=== PATIENT | male | born 1995 | race Caucasian/White ===

== ENCOUNTER 2016-06-06 21:45 | Emergency (ER) | payer BC ==
[~2016-06-06] VITALS: Ht 185.4 cm; Wt 101.4 kg
[2016-06-06 21:56] VITALS: TEMP 36.8; Ht 185.4 cm; Wt 101.4 kg
[2016-06-06] MEDS ORDERED: ACETAMINOPHEN 500 MG TAB PO STA (23:24)
[2016-06-06] MEDS ORDERED: IBUPROFEN 600 MG TAB PO STA (23:24)
[2016-06-07] MEDS ORDERED: NORCO 5/325MG HOME PACK PO ONE
[2016-06-07 00:15] VITALS: BP 134/86; PULSE 75; O2SAT 99
--- NOTE | 2016-06-07 00:56 | EMERGENCY ROOM VISIT NOTE ---
ED Visit Note First contact with patient: 22:27 CHIEF COMPLAINT: Shoulder pain HISTORY OF PRESENT ILLNESS: This 20 year old male patient presents to the emergency department complaining of pain in the left shoulder and clavicle. The patient states that he was playing lacrosse prior to arrival. He states that he fell, and landed onto his left shoulder, causing his injury. There is no significant limitation of motion of the arm because of the pain. The pain is moderate, constant and increases with motion of the hand and arm. The patient states the pain is dull and 7/10. The patient has taken nothing for relief of the pain. No previous significant previous shoulder disease or injury. No numbness or tingling. No neck and no back pain. No chest pain or shortness of breath. No abdominal pain or nausea/vomiting. No cough. REVIEW OF SYSTEMS: A 6 system review of systems was performed with positives and pertinent negatives in the HPI. ALLERGIES: See EMR MEDICATIONS: See EMR PMH: No chronic medical disease SOCIAL HISTORY: Student and lives locally PHYSICAL EXAM: Vital Signs: Reviewed nurse's notes, vital signs stable. GENERAL : White male, in no acute distress, but appears to be in pain, well-developed, well-nourished. MUSCULOSKELETAL: There is no deformity in the contour of the left shoulder and there are no clarita deformities noted. There is no sulcus sign. There is tenderness over the left clavicle. The patient's range of motion is normal. Supraspinatus strength 4/5. No tenderness of the humerus, elbow, wrist, or hand. Swimming Professor strength 5/5. Radial pulse 2+. NECK: No tenderness to palpation over the cervical spine. HEART: Regular rate and rhythm without murmurs gallops or rubs. LUNGS: Clear to auscultation bilaterally without wheezes, rales or rhonchi. No accessory muscle use. No retractions. NEURO: The patient is alert and oriented to person, place, and time. Normal sensation to light and sharp touch. Capillary refill less than 2 seconds. EMERGENCY DEPARTMENT COURSE: Physical exam and history were performed. Nursing notes and EMR were reviewed. The patient appears to have injured his left shoulder and clavicle. X-rays were obtained, and there is concern for a midshaft nondisplaced clavicle fracture. Radiology read is pending at this time. The patient was informed of his injury and concerns. He will be given an arm sling and a home pack of Vicodin. He was treated here with ibuprofen and Tylenol. The patient will need to follow with orthopedics for further care and management. He may need repeat x-rays. Clinically the area of injury is where he is with maximal tenderness, negative concerning for fracture. The patient was asked to return to the ER with any new, worsening, or concerning symptoms. Current/Historical Medications No Active Prescriptions or Reported Meds Allergies Coded Allergies: Amoxicillin (Unverified Allergy, Unknown, HIVES, 06/06/16) Cefprozil (Unverified Allergy, Unknown, HIVES, 06/06/16) Penicillins (Unverified Allergy, Unknown, HIVES, 06/06/16) Vital Signs Date Time Temp Pulse Resp B/P Pulse Ox O2 Delivery O2 Flow Rate FiO2 06/07/16 00:15 75 16 134/86 99 06/06/16 21:56 36.8 72 18 140/91 96 Room Air Medications Administered Medications (Trade) Dose Ordered Sig/Aristeo Route Start Time Stop Time Status Last Admin Dose Admin Acetaminophen (Tylenol Tab) 1,000 mg NOW STAT PO 06/06/16 23:24 06/06/16 23:26 DC 06/06/16 23:37 1,000 MG Ibuprofen (Motrin Tab) 600 mg NOW STAT PO 06/06/16 23:24 06/06/16 23:26 DC 06/06/16 23:37 600 MG Acetaminophen/ Hydrocodone Bitart ([place] 5/325mg Home Pack) 1 homepack UD ONCE PO 06/07/16 00:00 06/07/16 00:01 DC 06/07/16 00:12 1 HOMEPACK Departure Information Impression Primary Impression: Injury of left clavicle Dispostion Home / Self-Care Condition GOOD Prescriptions No Active Prescriptions or Reported Meds Referrals Cody Perrin MD Forms HOME CARE DOCUMENTATION FORM, IMPORTANT VISIT INFORMATION Patient Instructions My [facility] Additional Instructions You were seen and evaluated today on an emergency basis only. This is not a substitute for, or an effort to provide, complete comprehensive medical care. It is not possible to recognize and treat all injuries or illnesses in a single emergency department visit. For this reason it is recommended that you followup with [facility] , Dr. Perrin's office, this week for ongoing care and evaluation. For baseline pain relief you may alternate ibuprofen and acetaminophen every 4 hours for pain control. Take 600 mg ibuprofen (Advil) and then 4 hours later take 1000 mg acetaminophen (Tylenol). Do not take more than 3000 mg acetaminophen in a single day. [place] (hydrocodone/acetaminophen) 5/325 mg every 6 hours as needed for worsening breakthrough pain. Do not drink or drive on [place]. This medication will likely make you tired. Do not take [place] and Tylenol at the same time as both contain acetaminophen. [place] may cause constipation. You may wish to take an [id number] stool softener like Colace if this occurs. Wear your arm sling for comfort. You may remove your arm several times daily to practice range of motion of the shoulder. Do not lift anything with your left arm until otherwise cleared by orthopedics. You are welcome to return to the emergency department anytime with new, worsening, or concerning symptoms.
--- NOTE | 2016-06-07 07:42 | DIAGNOSTIC IMAGING REPORT ---
LEFT SHOULDER MIN 2 VIEWS ROUTINE, LEFT CLAVICLE CLINICAL HISTORY: Left shoulder/clavicle injury COMPARISON STUDY: None. FINDINGS: No fracture or dislocation within the left shoulder or left clavicle. Soft tissues are unremarkable. IMPRESSION: No fractures within the left shoulder or left clavicle. Electronically signed by: Daniel Jauregui M.D. 06/07/2016 7:41 AM Dictated Date/Time: 06/07/2016 7:40 AM
== END 2016-06-07 00:16 | disposition home or self-care (01) ==
LOC: C.EDB 21:47 → C.EDA 06-07 00:16
DX: S49.92XA Unspecified injury of left shoulder and upper arm, initial encounter (principal); M25.512 Pain in left shoulder; W18.39XA Other fall on same level, initial encounter; Y93.65 Activity, lacrosse and field hockey; Y92.328 Other athletic field as the place of occurrence of the external cause

== ENCOUNTER → 2016-06-23 | Outpatient (CLI) | payer BC | END | disposition home or self-care (01) | LOC: C.RDSM 13:56 | PROVIDERS: ATTEND Orthopaedic Surgery Sports Medicine | DX: Z09 Encounter for follow-up examination after completed treatment for conditions other than malignant neoplasm (principal) ==

== ENCOUNTER → 2016-07-07 | Outpatient (CLI) | payer BC | END | disposition home or self-care (01) | LOC: C.RDSM 13:25 | PROVIDERS: ATTEND Orthopaedic Surgery Sports Medicine | DX: Z09 Encounter for follow-up examination after completed treatment for conditions other than malignant neoplasm (principal) ==

== ENCOUNTER 2016-12-04 18:58 | Emergency (ER) | payer BC ==
[~2016-12-04] VITALS: Ht 185.4 cm; Wt 102.8 kg
[2016-12-04 19:18] VITALS: TEMP 37.1; Ht 185.4 cm; Wt 102.8 kg
[2016-12-04] MEDS ORDERED: XYLOCAINE 1%/SOD BICARB 20 ML VIAL INFIL ONE (19:30)
--- NOTE | 2016-12-04 20:11 | EMERGENCY ROOM VISIT NOTE ---
History First contact with patient: 19:24 Chief Complaint: INFECTION Stated Complaint: INFECTED R INDEX FINGER,SWELLING, THROBBING Nursing Triage Summary: R 2nd finger infection. swelling and redness last week. now swollen and pussy. pt went to walk in clinic yesterday and given Doxycycline History of Present Illness The patient is a 21 year old male who presents to the Emergency Room with complaints of an infected right index finger. The patient reports that he started to notice swelling and redness developing last Sunday. By the weekend, the infection progressively worsened. He was seen at an urgent care center and prescribed doxycycline. No attempted I&D procedure was performed. The patient rates his discomfort a 6 out of 10. The patient is right-hand- dominant. Tetanus immunization is up-to-date. The patient admits to chewing his nails. Review of Systems 10 system review was performed and was negative except for pertinent positives and negatives as indicated in history of present illness Past Medical/Surgical History Medical Problems: (1) No significant past medical history Surgical Problems: (1) No history of previous surgery Family History FH: diabetes mellitus Social History Smoking Status: Never Smoker Alcohol Use: occasionally Marital Status: single Housing Status: lives with roommate Occupation Status: [employer] student Current/Historical Medications No Active Prescriptions or Reported Meds Physical Exam Vital Signs Date Time Temp Pulse Resp B/P (MAP) Pulse Ox O2 Delivery O2 Flow Rate FiO2 12/04/16 19:18 37.1 84 18 136/79 97 Room Air Physical Exam CONSTITUTIONAL: Healthy and well nourished. Alert and oriented X 3 with positive affect. Patient appears in mild discomfort from pain. HEENT: Normocephalic, atraumatic. Pupils equal, round and reactive. NECK: Full active range of motion without discomfort. MUSCULOSKELETAL: Examination shows a significant paronychia abscess along the radial and proximal nail fold. The fingertip is also erythematous with capillary refill less than 2 seconds. There is no erythema that extends proximal to the DIP joint. Nail plate is intact. INTEGUMENTARY: No rash or other significant dermatologic conditions noted. NEUROLOGIC: Right index fingertip is sensory intact. Medical Decision & Procedures Medications Administered Medications (Trade) Dose Ordered Sig/Aristeo Route Start Time Stop Time Status Last Admin Dose Admin Lidocaine HCl (Buffered Lidocaine 1% Inj) 20 ml ONE ONCE INFIL 12/04/16 19:30 12/04/16 19:35 DC 12/04/16 19:30 20 ML Procedure I&D procedure was performed under digital block anesthesia after receiving verbal consent from the patient. Using buffered 1% lidocaine without epinephrine, good digital block anesthesia was administered. Finger was then painted with iodine and allowed to dry. Using a #11 scalpel, a 1 cm incision was made along the radial nail fold with copious purulent drainage. Wound cultures were collected. Normal saline pressure irrigation was performed, then the corner of a 2 x 2 gauze with bacitracin was inserted into the wound to act is awake. A fluffy bulk dressing was applied to the fingertip. The patient tolerated the procedure well. ED Course Patient history and physical exam were performed. Nurse's notes were reviewed. Vital signs were reviewed and were normal. I&D procedure was performed under digital block anesthesia. The patient was encouraged to remove the dressing in 48 hours, then clean the wound daily with soap and water, and keep the wound covered with an antibody ointment and dressing until it heals. He was instructed to continue and finish his current antibiotic regimen. I did explain that the infection usually heals well with just I&D procedure alone. He was instructed to return to the emergency department for any worsening infection. Ibuprofen and Tylenol in alternating fashion if needed for additional pain relief. The patient was happy with plan of care, voiced understanding of all discharge instructions, and denied any pain at the conclusion of the procedure. Medical Decision Medication Reconcilliation Current Medication List: was personally reviewed by me Blood Pressure Screening Patient's blood pressure: Normal blood pressure Impression Primary Impression: Paronychia of right index finger Departure Information Dispostion Home / Self-Care Prescriptions No Active Prescriptions or Reported Meds Forms HOME CARE DOCUMENTATION FORM, IMPORTANT VISIT INFORMATION Patient Instructions My [facility], ED Fingernail Infec Additional Instructions Continue and finish your oral antibiotics as previously prescribed. Remove dressing from the finger in 48 hours, clean wound well and keep covered with an antibody ointment and dressing until it heals. Ibuprofen 800 mg and/or Tylenol 1000 mg every 8 hours. You may also alternate these medications for more effective pain relief: Ibuprofen --4 HRS--> Tylenol --4 HRS--> ibuprofen --4 HRS--> Tylenol .... Return to the emergency department for any progressively worsening infection. You may follow-up with [facility] as needed for further wound management. Try to avoid biting your fingernails in the future as this significantly increases your risk for paronychia.
[2016-12-04 20:25] VITALS: BP 128/76; PULSE 78; O2SAT 96
== END 2016-12-04 20:28 | disposition home or self-care (01) ==
LOC: C.EDB 18:59 → C.EDD 20:28
DX: L03.011 Cellulitis of right finger (principal); Z83.3 Family history of diabetes mellitus